=== PATIENT | female | born 1950 | race American Indian/Alaskan Native ===

== ENCOUNTER 2021-09-06 23:25 | Inpatient (IN) | payer OTHER, MEDICARE ==
[2021-09-07] MEDS ORDERED: methylPREDNISolone Sod Succinate 125 MG/2 ML INJ IV ONE (00:22)
[2021-09-07] MEDS ORDERED: IPRATROPIUM 0.02% NEBU 2.5 ML IH ONE (00:22)
[2021-09-07] MEDS ORDERED: ALBUTEROL 2.5 MG/3 ML NEBU IH ONE (00:22)
--- NOTE | 2021-09-07 00:26 | Emergency Department Report ---
ED General Adult HPI - General Chief complaint: Weakness Stated complaint: WEAKNESS Time Seen by Provider: 09/07/21 00:20 Source: patient Mode of arrival: Stretcher Limitations: No Limitations - History of Present Illness Initial comments: Patient is 71 years old female with history of hypertension, COPD and asthma. Patient brought to the emergency room via EMS from home for evaluation of shortness of breath. Patient stated that her symptoms started all of a sudden around 9 PM when she felt like everything in a slow motion. She stated that this is continued for approximately 20 minutes and went away. Patient denied any focal weakness, numbness or tingling sensation. She denied any blurry vision or double vision. No slurred speech. She is complaining now of shortness of breath. She denied any chest pain or cough. No fever or chills. Stroke scale is 0. - Related Data Home Medications Medication Instructions Recorded Confirmed Last Taken ALBUTEROL NEB's [Proventil 0.083% 2.5 mg IH TID PRN 08/22/21 08/22/21 Unknown NEBS] Previous Rx's Medication Instructions Recorded Last Taken Type Albuterol Mdi (or & Nicu Only) 2 puff INHALATION Q4H PRN 30 Days 08/24/21 Unknown Rx [ProAir HFA Inhaler] AtorvaSTATin [Lipitor] 20 mg PO QHS #30 tab 08/24/21 Unknown Rx Budesonide/Formoterol Fumarate 2 puff PO BID 30 Days 08/24/21 Unknown Rx [Symbicort 160-4.5 Mcg Inhaler] Montelukast [Singulair] 10 mg PO QPM #30 tab 08/24/21 Unknown Rx NIFEdipine [Nifedipine ER] 60 mg PO DAILY #30 08/24/21 Unknown Rx Prednisone [predniSONE 10 mg 10 mg PO .TAPER #1 08/24/21 Unknown Rx (6-Day Pack, 21 Tabs)] Allergies Allergy/AdvReac Type Severity Reaction Status Date / Time atorvastatin AdvReac Joint Pain Verified 08/22/21 14:06 ED Review of Systems ROS: Stated complaint: WEAKNESS Other details as noted in HPI Comment: All other systems reviewed and negative Constitutional: denies: chills, fever Respiratory: denies: cough ED Past Medical Hx - Past Medical History Previous Medical History?: Yes Hx Hypertension: Yes Hx Asthma: Yes Hx COPD: Yes Hx HIV: No Additional medical history: intubated - Surgical History Past Surgical History?: Yes Additional Surgical History: - Social History Smoking Status: Current Some Day Smoker - Medications Home Medications: Home Medications Medication Instructions Recorded Confirmed Last Taken Type ALBUTEROL NEB's [Proventil 0.083% 2.5 mg IH TID PRN 08/22/21 08/22/21 Unknown History NEBS] Albuterol Mdi (or & Nicu Only) 2 puff INHALATION Q4H PRN 30 Days 08/24/21 Unknown Rx [ProAir HFA Inhaler] AtorvaSTATin [Lipitor] 20 mg PO QHS #30 tab 08/24/21 Unknown Rx Budesonide/Formoterol Fumarate 2 puff PO BID 30 Days 08/24/21 Unknown Rx [Symbicort 160-4.5 Mcg Inhaler] Montelukast [Singulair] 10 mg PO QPM #30 tab 08/24/21 Unknown Rx NIFEdipine [Nifedipine ER] 60 mg PO DAILY #30 08/24/21 Unknown Rx Prednisone [predniSONE 10 mg 10 mg PO .TAPER #1 08/24/21 Unknown Rx (6-Day Pack, 21 Tabs)] ED Physical Exam - General Limitations: No Limitations ED Course Vital Signs 09/07/21 09/07/21 09/07/21 00:22 01:00 01:23 Temperature 98.5 F Pulse Rate 80 92 H Pulse Rate [ Anterior] Respiratory 20 15 14 Rate Respiratory Rate [Anterior] Blood Pressure 143/91 Blood Pressure 149/91 [Left] O2 Sat by Pulse 98 100 98 Oximetry 09/07/21 09/07/21 09/07/21 01:26 01:31 01:45 Temperature Pulse Rate 62 69 Pulse Rate [ 83 Anterior] Respiratory 15 19 Rate Respiratory 16 Rate [Anterior] Blood Pressure 156/93 156/93 Blood Pressure [Left] O2 Sat by Pulse 100 100 Oximetry 09/07/21 02:01 Temperature Pulse Rate 81 Pulse Rate [ Anterior] Respiratory 20 Rate Respiratory Rate [Anterior] Blood Pressure 154/79 Blood Pressure [Left] O2 Sat by Pulse 100 Oximetry ED Medical Decision Making - Lab Data Result diagrams: 09/07/21 00:47 09/07/21 00:47 - EKG Data -: EKG Interpreted by Vt EKG shows normal: sinus rhythm Rate: normal - EKG Data Interpretation: no acute changes - Radiology Data Radiology results: report reviewed - Medical Decision Making Patient is 71 years old female with history of hypertension, COPD and asthma. Patient brought to the emergency room via EMS from home for evaluation of shortness of breath. Patient stated that her symptoms started all of a sudden around 9 PM when she felt like everything in a slow motion. She stated that t his is continued for approximately 20 minutes and went away. Patient denied any focal weakness, numbness or tingling sensation. She denied any blurry vision or double vision. No slurred speech. She is complaining now of shortness of breath. She denied any chest pain or cough. No fever or chills. Stroke scale is 0. EKG is unremarkable. Labs reviewed was unremarkable. Chest x-ray is negative for acute finding. CT brain showed possible subacute infarct. Patient might have a symptoms of TIA. Patient was wheezing and received albuterol, Atrovent and Solu-Medrol. I discussed the patient with Dr. Menjivar, he agreed to admit the patient to medical service for further management. Critical Care Time: Yes Critical care time in (mins) excluding proc time.: 35 Critical care attestation.: If time is entered above; I have spent that time in minutes in the direct care of this critically ill patient, excluding procedure time. ED Disposition Clinical Impression: COPD with acute exacerbation, TIA (transient ischemic attack) Disposition: 09 ADMITTED INPATIENT Is pt being admited?: Yes Condition: Stable Instructions: Chronic Obstructive Pulmonary Disease (ED)
[2021-09-07 00:59] LABS: Basophils % (Auto) 0.4 % (0.0-1.8); Eosinophils # (Auto) 0.1 K/mm3 (0.0-0.4); Eosinophils % (Auto) 1.2 % (0.0-4.3); Hematocrit 41.9 % (30.3-42.9); Hemoglobin 14.2 gm/dl (10.1-14.3); Lymphocytes # (Auto) 2.2 K/mm3 (1.2-5.4); Lymphocytes % (Auto) 29.2 % (13.4-35.0); Mean Corpuscular HGB Conc 34 % (30-34); Mean Corpuscular Volume 86 fl (79-97); Monocytes # (Auto) 0.6 K/mm3 (0.0-0.8); Monocytes % (Auto) 7.8 % (0.0-7.3); Platelet Count 248 K/mm3 (140-440); Red Blood Count 4.86 M/mm3 (3.65-5.03); Red Cell Distribution Width 14.3 % (13.2-15.2)
[2021-09-07 01:11] LABS: INR 0.8 (0.87-1.13)
--- NOTE | 2021-09-07 01:17 | Cat Scan Report ---
CT HEAD WITHOUT CONTRAST INDICATION / CLINICAL INFORMATION: Syncope. TECHNIQUE: CT head was performed without administration of intravenous contrast. All CT scans at this location are performed using CT dose reduction for ALARA by means of automated exposure control. COMPARISON: None available. FINDINGS: CEREBRAL HEMISPHERES: Generalized atrophy and moderate bilateral regions of periventricular white mat ter hypoattenuation are demonstrated. Bilateral more focal superimposed foci additionally demonstrate d. No midline shift. Basal cisterns patent. Hypoattenuation with indistinct margins medial occipital cortex left occipital lobe. HEMORRHAGE: None. CEREBELLUM / BRAINSTEM: No significant abnormality. ORBITS: No significant abnormality. Prior right cataract surgery. SOFT TISSUES: No significant abnormality. SKULL: No significant abnormality. PARANASAL SINUSES / MASTOID AIR CELLS: Normal as visualized. ADDITIONAL FINDINGS: None. IMPRESSION: 1. Extensive white matter hypoattenuation present bilaterally, differential considerations to include advanced microvascular ischemic disease and possibly demyelinating process. 2. Hypoattenuation medial cortex left occipital lobe may reflect subacute infarction. MRI recommended for further evaluation. Signer Name: Mateus Ahn II, MD Signed: 09/07/2021 1:12 AM Workstation Name: [id number]
[2021-09-07 01:21] LABS: BUN/Creatinine Ratio 15; Blood Urea Nitrogen 12 mg/dL (7-17); Calcium 9.5 mg/dL (8.4-10.2); Hemolysis Index 23
[2021-09-07 01:25] LABS: Alanine Aminotransferase 22 units/L (7-56)
[2021-09-07 01:34] LABS: Bilirubin,Direct < 0.2 mg/dL (0-0.2)
--- NOTE | 2021-09-07 02:38 | XRay Report ---
CHEST 1 VIEW INDICATION / CLINICAL INFORMATION: SOB. COMPARISON: Chest x-ray 08/21/2021 FINDINGS: SUPPORT DEVICES: None. HEART / MEDIASTINUM: No significant abnormality. LUNGS / PLEURA: No significant pulmonary abnormality. Stable eventration right hemidiaphragm. BONES: No significant osseous abnormality. ADDITIONAL FINDINGS: No significant additional findings. IMPRESSION: 1. No active cardiopulmonary disease. Signer Name: Mateus Ahn II, MD Signed: 09/07/2021 2:33 AM Workstation Name: [id number]
--- NOTE | 2021-09-07 03:26 | Cat Scan Report ---
CTA CHEST WITH CONTRAST INDICATION / CLINICAL INFORMATION: CHEST PAIN WITH SOB. TECHNIQUE: Axial CT images were obtained through the chest after injection of IV contrast. 3 plane NJ P and/or 3D reconstructions were produced. All CT scans at this location are performed using CT dose reduction for ALARA by means of automated exposure control. COMPARISON: None available. FINDINGS: VASCULAR FINDINGS: PULMONARY ARTERY: Pulmonary artery is normal in size. No filling defects are present compatible with pulmonary artery embolus.. THORACIC AORTA: No acute abnormality. Ascending aorta measures 3.8 cm. CORONARY ARTERY CALCIFICATION: Present -- Mild. NONVASCULAR FINDINGS: LOWER NECK: Soft tissues and musculature of the lower neck demonstrate no significant abnormality. Th e thyroid demonstrates no significant abnormality. HEART: No significant abnormality. MEDIASTINUM / GABBY: No significant abnormality. ESOPHAGUS: No significant abnormality. LYMPH NODES: No adenopathy within the axilla, mediastinum, or gabby. LUNGS: Mild centrilobular emphysema. Discoid atelectasis right middle lobe. Lungs otherwise clear. PLEURA: No pleural effusion. No pneumothorax. THORACIC SOFT TISSUES: No significant abnormality of the chest wall or upper thoracic musculature. BONES: No significant skeletal abnormalities. ADDITIONAL CHEST FINDINGS: None. UPPER ABDOMEN: No acute findings. IMPRESSION: 1. No CT evidence for pulmonary embolism. 2. Centrilobular emphysema. Signer Name: Mateus Ahn II, MD Signed: 09/07/2021 3:22 AM Workstation Name: [id number]
[2021-09-07] MEDS ORDERED: ALBUTEROL 2.5 MG/3 ML NEBU IH PRN ×3 (04:43→23:00)
[2021-09-07] MEDS ORDERED: MORPHINE 2 MG/1 ML INJ IV PRN ×2 (04:43)
[2021-09-07] MEDS ORDERED: ONDANSETRON 4 MG/2 ML INJ IV PRN ×2 (04:43)
[2021-09-07] MEDS ORDERED: PROMETHAZINE 25 MG RECT SUPP PR PRN (04:43)
[2021-09-07] MEDS ORDERED: METOCLOPRAMIDE 10 MG TAB PO PRN (04:43)
[2021-09-07] MEDS ORDERED: ACETAMINOPHEN 325 MG TAB PO PRN ×2 (04:43)
[2021-09-07] MEDS ORDERED: MAGNESIUM HYDROXIDE (MOM) ORAL LIQD UDC PO PRN ×2 (04:43)
[2021-09-07] MEDS ORDERED: MORPHINE 4 MG/1 ML INJ IV PRN ×2 (04:43)
--- NOTE | 2021-09-07 05:00 | History and Physical Report ---
History of Present Illness Date of examination: 09/07/21 Date of admission: 09/07/2021 Chief complaint: 09/07/2021 History of present illness: 71-year-old -[place] female with known history of hypertension, COPD and asthma presenting to the emergency room via EMS today for evaluation of shortness of breath. Patient states that symptoms started about 9 PM earlier in the night when she felt suddenly stiff and numb. Symptoms were present for about 20 minutes. He denies any headache or dizziness, no nausea vomiting, no chest pain, no diaphoresis. He denies any slurred speech and denies any focal weakness. Patient denies any fever or chills. Upon arrival in the emergency room she was found to be wheezing, was therefore given nebulizing treatments and IV steroid with significant improvement. Work-up in the emergency room today, chest x-ray was unremarkable. CT scan of the head reveals:1. Extensive white matter hypoattenuation present bilaterally, differential considerations to include advanced microvascular ischemic disease and possibly demyelinating process. 2. Hypoattenuation medial cortex left occipital lobe may reflect subacute inf arction. MRI recommended for further evaluation. CT angiogram of the chest reveals centrilobular emphysema. No evidence of pulmonary embolism. Patient was evaluated by the tele-neurologist and recommendation is for patient to have MRI of the brain. Past History Past Medical History: hypertension, other (Asthma) Past Surgical History: Social history: smoking (Current Daily smokersmokes about half a pack of cigarette daily) Family history: no significant family history Medications and Allergies Allergies Allergy/AdvReac Type Severity Reaction Status Date / Time atorvastatin AdvReac Joint Pain Verified 08/22/21 14:06 Home Medications Medication Instructions Recorded Confirmed Last Taken Type ALBUTEROL NEB's [Proventil 0.083% 2.5 mg IH TID PRN 08/22/21 08/22/21 Unknown History NEBS] Albuterol Mdi (or & Nicu Only) 2 puff INHALATION Q4H PRN 30 Days 08/24/21 Unknown Rx [ProAir HFA Inhaler] AtorvaSTATin [Lipitor] 20 mg PO QHS #30 tab 08/24/21 Unknown Rx Budesonide/Formoterol Fumarate 2 puff PO BID 30 Days 08/24/21 Unknown Rx [Symbicort 160-4.5 Mcg Inhaler] Montelukast [Singulair] 10 mg PO QPM #30 tab 08/24/21 Unknown Rx NIFEdipine [Nifedipine ER] 60 mg PO DAILY #30 08/24/21 Unknown Rx Prednisone [predniSONE 10 mg 10 mg PO .TAPER #1 08/24/21 Unknown Rx (6-Day Pack, 21 Tabs)] Active Meds: Active Medications Acetaminophen (Acetaminophen 325 Mg Tab) 650 mg PO Q4H PRN PRN Reason: Pain, Mild (1-3) Albuterol (Albuterol 2.5 Mg/3 Ml Nebu) 2.5 mg IH Q3HRT PRN PRN Reason: Shortness Of Breath Albuterol/Ipratropium (Ipratropium/Albuterol Sulfate 3 Ml Ampul.Neb) 1 ampul IH Q6HRT LUCIANA Aspirin (Aspirin 325 Mg Tab) 325 mg PO QDAY LUCIANA Bisacodyl (Bisacodyl 10 Mg Rect Supp) 10 mg SC QDAY PRN PRN Reason: Constipation Heparin Sodium (Porcine) (Heparin 5,000 Unit/1 Ml Vial) 5,000 unit SUB-Q Q8HR LUCIANA Magnesium Hydroxide (Magnesium Hydroxide (Mom) Oral Liqd Udc) 30 ml PO Q4H PRN PRN Reason: Constipation Metoclopramide HCl (Metoclopramide 10 Mg Tab) 10 mg PO Q6H PRN PRN Reason: Nausea And Vomiting Morphine Sulfate (Morphine 2 Mg/1 Ml Inj) 2 mg IV Q4H PRN PRN Reason: Pain, Moderate (4-6) Morphine Sulfate (Morphine 4 Mg/1 Ml Inj) 4 mg IV Q4H PRN PRN Reason: Pain , Severe (7-10) Ondansetron HCl (Ondansetron 4 Mg/2 Ml Inj) 4 mg IV Q8H PRN PRN Reason: Nausea And Vomiting Promethazine HCl (Promethazine 25 Mg Rect Supp) 25 mg SC Q6H PRN PRN Reason: Nausea And Vomiting Sodium Chloride (Sodium Chloride 0.9% 10 Ml Flush Syringe) 10 ml IV BID LUCIANA Sodium Chloride (Sodium Chloride 0.9% 10 Ml Flush Syringe) 10 ml IV PRN PRN PRN Reason: LINE FLUSH Review of Systems Constitutional: no fever, no chills Ears, nose, mouth and throat: no nasal congestion, no sore throat Cardiovascular: no chest pain, no palpitations Respiratory: no cough, no shortness of breath Gastrointestinal: no nausea, no vomiting, no diarrhea, no jaundice Genitourinary Female: no pelvic pain, no flank pain, no dysuria, no hematuria Musculoskeletal: no low back pain Integumentary: no rash, no pruritis Neurological: weakness, no headaches, no confusion Psychiatric: no anxiety, no insomnia, no paranoia Endocrine: excessive thirst ( ), no polyphagia, no polydipsia, no polyuria, no nocturia Exam - Constitutional Vitals: Temp Pulse Resp BP Pulse Ox 98.5 F 81 20 154/79 100 09/07/21 00:22 09/07/21 02:01 09/07/21 02:01 09/07/21 02:01 09/07/21 02:01 General appearance: Present: no acute distress, well-nourished - EENT Eyes: Present: PERRL, EOM intact. Absent: scleral icterus ENT: hearing intact, clear oral mucosa, dentition normal - Neck Neck: Present: supple, normal ROM - Respiratory Respiratory effort: normal Respiratory: bilateral: CTA - Cardiovascular Rhythm: regular Heart Sounds: Present: S1 & S2. Absent: gallop, systolic murmur, diastolic murmur, rub, click - Extremities Extremities: no ischemia, pulses intact, pulses symmetrical, No edema, normal te mperature, normal color, Full ROM Peripheral Pulses: within normal limits - Abdominal General gastrointestinal: Present: soft, non-tender, non-distended, normal bowel sounds. Absent: mass - Integumentary Integumentary: Present: clear, warm, dry, normal turgor. Absent: rash - Musculoskeletal Musculoskeletal: strength equal bilaterally - Psychiatric Psychiatric: appropriate mood/affect, intact judgment & insight, memory intact, cooperative - Neurologic Neurologic: CNII-XII intact, no focal deficits, moves all extremities HEART Score - HEART Score Troponin: Troponin T < 0.010 ng/mL (0.00-0.029) 09/07/21 00:47 Results - Labs CBC & Chem 7: 09/07/21 00:47 09/07/21 00:47 Labs: Abnormal lab results 09/07/21 09/07/21 09/07/21 Range/Units 00:47 00:47 00:47 [place] % (Auto) 7.8 H (0.0-7.3) % PT 11.9 L (12.2-14.9) Sec. INR 0.80 L (0.87-1.13) D-Dimer 290.40 H (0-234) ng/mlDDU Glucose 111 H (65-100) mg/dL Assessment and Plan Assessment: 1. TIA versus CVA 2. COPD 3. Tobacco dependence 4. Hypertension Plan: 1. Patient admitted and placed on telemetry. 2. We will commence on daily aspirin. Patient is allergic to statin. 3. We will schedule patient for MRI of the brain. 4. We will request neurology evaluation and follow-up. 5. Patient counseled on quitting tobacco abuse. We offer nicotine patch as needed. 6. Patient will be placed on nebulizing treatments as needed for COPD. 7. We will resume routine home medications once reconciled. DVT prophylaxis: Subcutaneous heparin CODE STATUS: Full code
[2021-09-07] MEDS: HEPARIN 5,000 UNIT/1 ML VIAL SUB-Q SCH ×3 (05:36→22:48)
[2021-09-07] MEDS: IPRATROPIUM/ALBUTEROL SULFATE 3 ML AMPUL.NEB IH SCH ×3 (11:38→22:48)
[2021-09-07] MEDS: ASPIRIN 325 MG TAB PO SCH (11:39)
--- NOTE | 2021-09-07 12:32 | Event Note ---
Date: 09/07/21 Patient seen and examined with at bedside. She was updated about current care plan. Home inhaler medications for asthma to be started. We will continue with current care plan as stated in H&P.
[2021-09-07] MEDS: NICOTINE 14 MG/24 HR PATCH TD SCH (15:18)
[2021-09-07] MEDS: MONTELUKAST 10 MG TAB PO SCH (19:00)
--- NOTE | 2021-09-07 21:40 | Electrocardiograph Report ---
[facility] Test Date: 2021-09-07 Test Time: 00:23:13 Pat Name: PETER COHEN Department: Room: A367 Gender: F Resource Room Teacher: LORENZO : 1950 Requested By: NIGEL STILL Order Number: [id number] Reading MD: Amy Bond Measurements Intervals [place] Rate: 71 P: 78 OK: 128 QRS: 50 QRSD: 82 T: 265 QT: 398 QTc: 433 Interpretive Statements Sinus rhythm ST and T wave abnormality, consider anterolateral ischemia Compared to ECG 08/21/2021 10:31:06 No significant changes Electronically Signed On 09-07-2021 21:40:19 EDT by Amy Bond
[2021-09-07] MEDS ORDERED: NON-FORMULARY EACH (Budesonide/Formoterol Fumarate [Symbicort 160-4.5 Mcg Inhaler] 10.2 GM PO SCH (22:00)
[2021-09-07] MEDS: BUDESONIDE 0.5 MG/2 ML NEBU IH SCH (22:48)
[2021-09-07] MEDS: ARFORMOTEROL 15 MCG/2 ML NEBU IH SCH (22:48)
[2021-09-08] MEDS: HEPARIN 5,000 UNIT/1 ML VIAL SUB-Q SCH ×3 (05:14→22:50)
[2021-09-08 05:55] LABS: Basophils # (Auto) 0.1 K/mm3 (0.0-0.1); Eosinophils % (Auto) 0.3 % (0.0-4.3); Hematocrit 37.7 % (30.3-42.9); Hemoglobin 13.3 gm/dl (10.1-14.3); Lymphocytes # (Auto) 3.1 K/mm3 (1.2-5.4); Lymphocytes % (Auto) 34.7 % (13.4-35.0); Mean Corpuscular HGB Conc 35 % (30-34); Mean Corpuscular Volume 85 fl (79-97); Monocytes # (Auto) 0.4 K/mm3 (0.0-0.8); Monocytes % (Auto) 4.9 % (0.0-7.3); Platelet Count 219 K/mm3 (140-440); Red Blood Count 4.46 M/mm3 (3.65-5.03); Red Cell Distribution Width 13.9 % (13.2-15.2)
[2021-09-08 06:16] LABS: Blood Urea Nitrogen 16 mg/dL (7-17); Calcium 8.7 mg/dL (8.4-10.2); Hemolysis Index 2
[2021-09-08 06:19] LABS: BUN/Creatinine Ratio 23
[2021-09-08] MEDS: ARFORMOTEROL 15 MCG/2 ML NEBU IH SCH ×2 (08:23→20:25)
[2021-09-08] MEDS: IPRATROPIUM/ALBUTEROL SULFATE 3 ML AMPUL.NEB IH SCH ×3 (08:23→20:25)
[2021-09-08] MEDS: BUDESONIDE 0.5 MG/2 ML NEBU IH SCH ×2 (08:23→20:25)
[2021-09-08] MEDS: ASPIRIN 325 MG TAB PO SCH (09:27)
[2021-09-08] MEDS: NICOTINE 14 MG/24 HR PATCH TD SCH (09:27)
--- NOTE | 2021-09-08 16:12 | Magnetic Resonance Report ---
MR brain wo con INDICATION / CLINICAL INFORMATION: stroke, SYNCOPE. TECHNIQUE: Multiplanar, multisequence MR images of the brain were obtained. COMPARISON: CT head from 09/07/2021 FINDINGS: INTRACRANIAL: Small areas of restricted diffusion seen within the right cerebellum. Large quantity of T2 signal white matter hyperintensities. No hemorrhage. Ventricular caliber is normal. No extra-axia l collection. No mass. No herniation. Major intracranial vascular flow voids are preserved. ORBITS: No significant abnormality of visualized orbits. SINUSES / MASTOIDS: No significant abnormality of visualized sinuses and mastoid air cells. ADDITIONAL FINDINGS: None. IMPRESSION: 1. Small area of acute infarctions involving the right cerebellum and right occipital lobe. 2. Advanced sequela from chronic microvascular disease. Signer Name: Ronald Gustafson MD Signed: 09/08/2021 4:08 PM Workstation Name: [id number]
--- NOTE | 2021-09-08 16:15 | Progress Note ---
Assessment and Plan Assessment and plan: #Acute right cerebellar infarct -CT of the head showed hypoattenuation of medial cortex left occipital lobe suggestive of subacute infarction -MRI brain showed chronic microvascular disease and small area of acute infarctions involving the right cerebellum and right occipital lobe -Echocardiogram with bubble study: Diastolic dysfunction, LVEF 60 to 65%, no ASD and mild pulmonary hypertension -Carotid Doppler pending -continue aspirin, statin not started due to patient history of myopathy/myalgias -Awaiting physical therapy evaluation due to presenting left lower extremity weakness and to evaluate gait #Hypertension -will resume nifedipine at patient's home dose -goal SBP <160 #history COPD -Not in acute exacerbation -Continue nebulizers #Tobacco dependence #Tobacco cessation counseling -Patient smokes half pack a day -Continue nicotine patch while inpatient -Patient would like trial of Chantix at discharge -Smoking cessation counseling, supportive care, behavior change counseling, +15 minutes. #Advanced care planning -Disease education conducted, care plan discussed, diagnoses discussed, prognosis discussed, and patient acknowledges understanding with care plan -Time: +30 min History Interval history: No acute events overnight. Patient reports feeling well. She has improved range of motion in her left foot. She has no complaints at this time. Hospitalist Physical - Physical exam Narrative exam: GENERAL: Well-developed well-nourished. In no acute distress. HEENT: Normocephalic. Atraumatic. CHEST/LUNGS: CTAB on room air HEART/CARDIOVASCULAR: RRR. No murmur, rubs or gallops appreciated. ABDOMEN: +BS. NT/ND. SKIN: No rashes noted. NEURO: No focal motor deficit. Follows all commands. MUSCULOSKELETAL: No joint effusion EXTREMITIES: No cyanosis, clubbing or edema. PSYCH: Cooperative. - Constitutional Vitals: Temp Pulse Resp BP Pulse Ox 98.2 F 83 16 171/97 100 09/08/21 11:24 09/08/21 13:11 09/08/21 13:11 09/08/21 11:24 09/08/21 11:24 General appearance: Present: no acute distress, well-nourished HEART Score - HEART Score Troponin: Troponin T < 0.010 ng/mL (0.00-0.029) 09/07/21 00:47 Results - Labs CBC & Chem 7: 09/08/21 05:07 09/08/21 05:07 Labs: Laboratory Last Values WBC 9.0 K/mm3 (4.5-11.0) 09/08/21 05:07 RBC 4.46 M/mm3 (3.65-5.03) 09/08/21 05:07 Hgb 13.3 gm/dl (10.1-14.3) 09/08/21 05:07 Hct 37.7 % (30.3-42.9) 09/08/21 05:07 MCV 85 fl (79-97) 09/08/21 05:07 MCH 30 pg (28-32) 09/08/21 05:07 MCHC 35 % (30-34) H 09/08/21 05:07 RDW 13.9 % (13.2-15.2) 09/08/21 05:07 Plt Count 219 K/mm3 (140-440) 09/08/21 05:07 Lymph % (Auto) 34.7 % (13.4-35.0) 09/08/21 05:07 [place] % (Auto) 4.9 % (0.0-7.3) 09/08/21 05:07 Eos % (Auto) 0.3 % (0.0-4.3) 09/08/21 05:07 Baso % (Auto) 1.0 % (0.0-1.8) 09/08/21 05:07 Lymph # (Auto) 3.1 K/mm3 (1.2-5.4) 09/08/21 05:07 [place] # (Auto) 0.4 K/mm3 (0.0-0.8) 09/08/21 05:07 Eos # (Auto) 0.0 K/mm3 (0.0-0.4) 09/08/21 05:07 Baso # (Auto) 0.1 K/mm3 (0.0-0.1) 09/08/21 05:07 Seg Neutrophils % 59.1 % (40.0-70.0) 09/08/21 05:07 Seg Neutrophils # 5.3 K/mm3 (1.8-7.7) 09/08/21 05:07 PT 11.9 Sec. (12.2-14.9) L 09/07/21 00:47 INR 0.80 (0.87-1.13) L 09/07/21 00:47 D-Dimer 290.40 ng/mlDDU (0-234) H 09/07/21 00:47 Sodium 141 mmol/L (137-145) 09/08/21 05:07 Potassium 3.7 mmol/L (3.6-5.0) 09/08/21 05:07 Chloride 106.2 mmol/L (98-107) 09/08/21 05:07 Carbon Dioxide 26 mmol/L (22-30) 09/08/21 05:07 Anion Gap 13 mmol/L 09/08/21 05:07 BUN 16 mg/dL (7-17) 09/08/21 05:07 Creatinine 0.7 mg/dL (0.6-1.2) 09/08/21 05:07 Estimated GFR > 60 ml/min 09/08/21 05:07 BUN/Creatinine Ratio 23 % 09/08/21 05:07 Glucose 85 mg/dL (65-100) 09/08/21 05:07 Calcium 8.7 mg/dL (8.4-10.2) 09/08/21 05:07 Total Bilirubin 0.30 mg/dL (0.1-1.2) 09/07/21 00:47 Direct Bilirubin < 0.2 mg/dL (0-0.2) 09/07/21 00:47 Indirect Bilirubin 0.1 mg/dL 09/07/21 00:47 AST 22 units/L (5-40) 09/07/21 00:47 ALT 22 units/L (7-56) 09/07/21 00:47 Alkaline Phosphatase 79 units/L (35-129) 09/07/21 00:47 Troponin T < 0.010 ng/mL (0.00-0.029) 09/07/21 00:47 NT-Pro-B Natriuret Pep 218.5 pg/mL (0-900) 09/07/21 00:47 Total Protein 6.5 g/dL (6.3-8.2) 09/07/21 00:47 Albumin 4.0 g/dL (3.9-5) 09/07/21 00:47 Albumin/Globulin Ratio 1.6 % 09/07/21 00:47 [place]z/IV: Voiding Method Toilet Active Medications - Current Medications Current Medications: Generic Name Dose Route Start Last Admin Trade Name Freq PRN Reason Stop Dose Admin Acetaminophen 650 mg 09/07/21 04:43 Acetaminophen 325 Mg Tab PO Q4H PRN Pain, Mild (1-3) Albuterol 2.5 mg 09/07/21 23:00 Albuterol 2.5 Mg/3 Ml Nebu IH TIDRT PRN Wheezing Albuterol/Ipratropium 1 ampul 09/08/21 08:00 09/08/21 13:11 Ipratropium/Albuterol Sulfate 3 Ml Ampul.Neb IH 1 ampul TIDRT LUCIANA Administration Arformoterol Tartrate 15 mcg 09/07/21 20:00 09/08/21 08:23 Arformoterol 15 Mcg/2 Ml Nebu IH 15 mcg Q12HRT LUCIANA Administration Aspirin 325 mg 09/07/21 10:00 09/08/21 09:27 Aspirin 325 Mg Tab PO 325 mg QDAY LUCIANA Administration Atorvastatin Calcium 20 mg 09/07/21 22:00 09/07/21 22:39 Atorvastatin 20 Mg Tab PO Not Given QHS LUCIANA Bisacodyl 10 mg 09/07/21 04:43 Bisacodyl 10 Mg Rect Supp IA QDAY PRN Constipation Budesonide 0.5 mg 09/07/21 20:00 09/08/21 08:23 Budesonide 0.5 Mg/2 Ml Nebu IH 0.5 mg Q12HRT LUCIANA Administration Heparin Sodium (Porcine) 5,000 unit 09/07/21 06:00 09/08/21 13:19 Heparin 5,000 Unit/1 Ml Vial SUB-Q 5,000 unit Q8HR LUCIANA Administration Magnesium Hydroxide 30 ml 09/07/21 04:43 Magnesium Hydroxide (Mom) Oral Liqd Udc PO Q4H PRN Constipation Metoclopramide HCl 10 mg 09/07/21 04:43 Metoclopramide 10 Mg Tab PO Q6H PRN Nausea And Vomiting Montelukast Sodium 10 mg 09/07/21 18:00 09/07/21 19:00 Montelukast 10 Mg Tab PO 10 mg QPM LUCIANA Administration Morphine Sulfate 2 mg 09/07/21 04:43 Morphine 2 Mg/1 Ml Inj IV Q4H PRN Pain, Moderate (4-6) Morphine Sulfate 4 mg 09/07/21 04:43 Morphine 4 Mg/1 Ml Inj IV Q4H PRN Pain , Severe (7-10) Nicotine 14 mg 09/07/21 12:00 09/08/21 09:27 Nicotine 14 Mg/24 Hr Patch TD 14 mg QDAY LUCIANA Administration Ondansetron HCl 4 mg 09/07/21 04:43 Ondansetron 4 Mg/2 Ml Inj IV Q8H PRN Nausea And Vomiting Promethazine HCl 25 mg 09/07/21 04:43 Promethazine 25 Mg Rect Supp IA Q6H PRN Nausea And Vomiting Sodium Chloride 10 ml 09/07/21 10:00 09/08/21 09:28 Sodium Chloride 0.9% 10 Ml Flush Syringe IV 10 ml BID LUCIANA Administration Sodium Chloride 10 ml 09/07/21 04:43 Sodium Chloride 0.9% 10 Ml Flush Syringe IV PRN PRN LINE FLUSH
--- NOTE | 2021-09-08 17:36 | Vascular Lab Report ---
DUPLEX DOPPLER ULTRASOUND CAROTID, BILATERAL INDICATION / CLINICAL INFORMATION: stroke. COMPARISON: None available. FINDINGS: RIGHT CAROTID: - PLAQUE ESTIMATE (%): < 50% - CCA velocity: 57 cm/sec. - ICA peak systolic velocity: 71 cm/sec. - ICA/CCA PSV Ratio: 1.2 Right Vertebral Artery: Antegrade flow. LEFT CAROTID: - PLAQUE ESTIMATE (%): < 50% - CCA velocity: 54 cm/sec. - ICA peak systolic velocity: 58 cm/sec. - ICA/CCA PSV Ratio: 1.1 Left Vertebral Artery: Antegrade flow. IMPRESSION: 1. Right Internal Carotid Artery: Less than 50% diameter stenosis. 2. Left Internal Carotid Artery: Less than 50% diameter stenosis. Velocity criteria are extrapolated from diameter data as defined by the Society of Radiologists in Ul trasound Consensus Conference, Radiology 2003; 229;340-346. NO STENOSIS (NORMAL) - Plaque = none; ICA PSV < 125 cm/sec; ICA/CCA PSV Ratio < 2.0 <50% STENOSIS - Plaque < 50%; ICA PSV < 125 cm/sec; ICA/CCA PSV Ratio < 2.0 50-69% STENOSIS - Plaque > 50%; ICA PSV = 125-230 cm/sec; ICA/CCA PSV Ratio = 2.0-4.0 >70% BUT <100% STENOSIS - Plaque > 50%; ICA PSV > 230 cm/sec; ICA/CCA PSV Ratio > 4.0 NEAR OCCLUSION - Plaque = visible lumen; ICA PSV = high/low/none; ICA/CCA PSV Ratio = variable TOTAL OCCLUSION - Plaque = no lumen; ICA PSV = none; ICA/CCA PSV Ratio = N/A Signer Name: Bruce Carmona MD Signed: 09/08/2021 5:31 PM Workstation Name: [id number]
[2021-09-08] MEDS: MONTELUKAST 10 MG TAB PO SCH (18:06)
[2021-09-08] MEDS: NIFEdipine XL 60 MG TAB PO SCH (18:06)
--- NOTE | 2021-09-09 00:07 | Consultation ---
History of Present Illness Consult date: 09/08/21 Reason for Consult: TIA vs CVA Chief complaint: "I feel better today." History of present illness: 71 yo female, right-handed, with htn, copd, stroke, who presented to the ED with noted event where she was seated and noted "I didn't know what I was saying" and "everything got slow" and "things became a blur" where she had a hard time remembering what was transpiring. The symptoms lasted for less than 30 minutes. She does not remember feeling short of breath as documeted in the ED. Currently, she is at her baseline. [facility] raised a concern for possible acute or subacute infarction involving the occipital lobe. Past History Past Medical History: COPD, hypertension, other (Asthma) Past Surgical History: Social history: smoking (Current Daily smokersmokes about half a pack of cigarette daily) Family history: no significant family history Medications and Allergies Allergies Allergy/AdvReac Type Severity Reaction Status Date / Time atorvastatin AdvReac Joint Pain Verified 08/22/21 14:06 Home Medications Medication Instructions Recorded Confirmed Last Taken Type ALBUTEROL NEB's [Proventil 0.083% 2.5 mg IH TID PRN 08/22/21 09/07/21 09/06/21 09:00 History NEBS] Albuterol Mdi (or & Nicu Only) 2 puff INHALATION Q4H PRN 30 Days 08/24/21 09/07/21 09/06/21 09:00 Rx [ProAir HFA Inhaler] AtorvaSTATin [Lipitor] 20 mg PO QHS #30 tab 08/24/21 09/07/21 09/06/21 09:00 Rx Budesonide/Formoterol Fumarate 2 puff PO BID 30 Days 08/24/21 09/07/21 09/06/21 09:00 Rx [Symbicort 160-4.5 Mcg Inhaler] Montelukast [Singulair] 10 mg PO QPM #30 tab 08/24/21 09/07/21 09/06/21 09:00 Rx NIFEdipine [Nifedipine ER] 60 mg PO DAILY #30 08/24/21 09/07/21 09/06/21 09:00 Rx Prednisone [predniSONE 10 mg 10 mg PO .TAPER #1 08/24/21 09/07/21 09/06/21 09:00 Rx (6-Day Pack, 21 Tabs)] Active Meds: Active Medications Acetaminophen (Acetaminophen 325 Mg Tab) 650 mg PO Q4H PRN PRN Reason: Pain, Mild (1-3) Albuterol (Albuterol 2.5 Mg/3 Ml Nebu) 2.5 mg IH TIDRT PRN PRN Reason: Wheezing Albuterol/Ipratropium (Ipratropium/Albuterol Sulfate 3 Ml Ampul.Neb) 1 ampul IH TIDRT [facility] Last Admin: 09/08/21 20:25 Dose: 1 ampul Arformoterol Tartrate (Arformoterol 15 Mcg/2 Ml Nebu) 15 mcg IH Q12HRT [facility] Last Admin: 09/08/21 20:25 Dose: 15 mcg Aspirin (Aspirin 325 Mg Tab) 325 mg PO QDAY [facility] Last Admin: 09/08/21 09:27 Dose: 325 mg Bisacodyl (Bisacodyl 10 Mg Rect Supp) 10 mg VA QDAY PRN PRN Reason: Constipation Budesonide (Budesonide 0.5 Mg/2 Ml Nebu) 0.5 mg IH Q12HRT [facility] Last Admin: 09/08/21 20:25 Dose: 0.5 mg Heparin Sodium (Porcine) (Heparin 5,000 Unit/1 Ml Vial) 5,000 unit SUB-Q Q8HR [facility] Last Admin: 09/08/21 22:50 Dose: 5,000 unit Magnesium Hydroxide (Magnesium Hydroxide (Mom) Oral Liqd Udc) 30 ml PO Q4H PRN PRN Reason: Constipation Metoclopramide HCl (Metoclopramide 10 Mg Tab) 10 mg PO Q6H PRN PRN Reason: Nausea And Vomiting Montelukast Sodium (Montelukast 10 Mg Tab) 10 mg PO QPM [facility] Last Admin: 09/08/21 18:06 Dose: 10 mg Morphine Sulfate (Morphine 2 Mg/1 Ml Inj) 2 mg IV Q4H PRN PRN Reason: Pain, Moderate (4-6) Morphine Sulfate (Morphine 4 Mg/1 Ml Inj) 4 mg IV Q4H PRN PRN Reason: Pain , Severe (7-10) Nicotine (Nicotine 14 Mg/24 Hr Patch) 14 mg TD QDAY [facility] Last Admin: 09/08/21 09:27 Dose: 14 mg Nifedipine (Nifedipine Xl 60 Mg Tab) 60 mg PO DAILY [facility] Last Admin: 09/08/21 18:06 Dose: 60 mg Ondansetron HCl (Ondansetron 4 Mg/2 Ml Inj) 4 mg IV Q8H PRN PRN Reason: Nausea And Vomiting Promethazine HCl (Promethazine 25 Mg Rect Supp) 25 mg VA Q6H PRN PRN Reason: Nausea And Vomiting Sodium Chloride (Sodium Chloride 0.9% 10 Ml Flush Syringe) 10 ml IV BID [facility] Last Admin: 09/08/21 22:50 Dose: 10 ml Sodium Chloride (Sodium Chloride 0.9% 10 Ml Flush Syringe) 10 ml IV PRN PRN PRN Reason: LINE FLUSH Review of Systems All systems: negative (as per hpi;) Physical Examination - Vital Signs Vital Signs: Vital Signs Temp Pulse Resp BP Pulse Ox 98.5 F 80 20 143/91 98 09/07/21 00:22 09/07/21 00:22 09/07/21 00:22 09/07/21 00:22 09/07/21 00:22 - Physical Exam Narrative exam: Gen: nad, well-nourished; Head: normocephalic; Eyes: no gaze deviation; no ptosis; ENT: normal vocalization; CVS: warm and well-perfused; Pulm: no respiratory distress; GI: appears non-distended; Ext: no cyanosis appreciated at distal extremities; Skin: no acute rash at distal extremities; Heme: no pathologic ecchymosis appreciated at distal extremities; Neuro: alert, oriented to name, age, month, year, surroundings, no dysarthria, no aphasia, CN 2 - PERRL, visual wheat grossly intact, CN 3, 4, 6 - EOMI, CN 5 - facial sensation symmetric to light touch, CN 7 - facial movement symmetric, CN 8 - hearing grossly intact, CN 9, 10 - uvula midline, CN 11 symmetric shoulder movement, CN 12 - tongue midline; Motor - at least 4/5 at all exts; Sensory - light touch symmetric, Cerebellar - fnf /hts intact, Gait - deferred secondary to fall risk; NIHSS (1a.) Level of Consciousness:0 (1b.) LOC Questions:0 (1c.) LOC Commands:0 (2.) Best Gaze:0 (3.) Visual:0 (4.) Facial Palsy:0 (5a.) Motor Arm, Left:0 (5b.) Motor Arm, Right:0 (6a.) Motor Leg, Left:0 (6b.) Motor Leg, Right:0 (7.) Limb Ataxia:0 (8.) Sensory:0 (9.) Best Language: (10.) Dysarthria:0 (11.) Extinction and Inattention:0 NIHSS Total Score:0 Results - Laboratory Findings CBC and BMP: 09/08/21 05:07 09/08/21 05:07 Abnormal Lab Findings: Abnormal Labs 09/07/21 09/07/21 09/07/21 00:47 00:47 00:47 [facility] [place] % (Auto) 7.8 H PT 11.9 L INR 0.80 L D-Dimer 290.40 H Glucose 111 H 09/08/21 05:07 MCHC 35 H [place] % (Auto) PT INR D-Dimer Glucose Assessment and Plan 71 yo female, right-handed, with htn, copd, stroke, who presented to the ED with noted event where she was seated and noted "I didn't know what I was saying" and "everything got slow" and "things became a blur" where she had a hard time remembering what was transpiring. The symptoms lasted for less than 30 minutes. 1. 1. Acute Ischemic Stroke: ASA 81 mg PO qday, Plavix 75 mg po qday x 21 days; when plavix is stopped after 21 days, change aspirin 81 mg to 325 mg po qday; consider MRA or CTA Head/Neck w/ & w/o contrast (if cta is unremarkable, then recommend gisela w/ long-term cardiac monitoring), TTEcho, confirm LDL/HgbA1C/TSH/Covid-19/UDS, telemetry, NIHSS q4 hours; SBP goal 160-200 mmHg and DBP 80-100 mmHg for now. Statin therapy for a goal LDL of 70, when patient passes swallow evaluation. PT/OT/ST/Swallow evaluation. Long-term risk-factor modification, including a strict diet/exercise regimen for secondary stroke prophylaxis. Stroke education prior to discharge. 2. Tobacco Abuse - outpatient smoking cessation via pcp. 3. Hx of stroke - patient is on aspirin 81 mg po qday; statin therapy for a goal ldl of 70. 4. COPD - see #2 above; albuterol prn. Brian Augusto[place] Neurology [id number]
[2021-09-09] MEDS: HEPARIN 5,000 UNIT/1 ML VIAL SUB-Q SCH ×2 (05:54→14:23)
[2021-09-09] MEDS: BUDESONIDE 0.5 MG/2 ML NEBU IH SCH (09:04)
[2021-09-09] MEDS: ARFORMOTEROL 15 MCG/2 ML NEBU IH SCH (09:04)
[2021-09-09] MEDS: IPRATROPIUM/ALBUTEROL SULFATE 3 ML AMPUL.NEB IH SCH ×2 (09:04→14:55)
[2021-09-09 09:44] LABS: Chol/HDL Ratio 2.53 %
[2021-09-09] MEDS: NICOTINE 14 MG/24 HR PATCH TD SCH (10:24)
[2021-09-09] MEDS: ASPIRIN 325 MG TAB PO SCH (10:24)
[2021-09-09] MEDS: NIFEdipine XL 60 MG TAB PO SCH (10:24)
--- NOTE | 2021-09-09 11:39 | Cat Scan Report ---
CTA neck without and with intravenous contrast material CLINICAL HISTORY: Acute Ischemic Stroke TECHNIQUE: Following acquisition of a timing bolus 0.625 mm thick contiguous axial scans were obtained from aort ic arch to the skull base during rapid bolus intravenous contrast infusion. In addition to evaluation of axial source images multiplanar reconstructions were produced and reviewed for this report. 3 racquel ne MIP reconstructions were produced and reviewed. Contrast dose report: Omnipaque 350: 100 ml, administered intravenously All CT examinations performed at this facility utilize modulated dose reduction, iterative reconstruc tion or weight-based dosing, as appropriate, to obtain a radiation dose which is as low as can reason ably be achieved. FINDINGS: Thoracic aorta:No abnormalities are identified along the course of the thoracic aorta.. Calcified ath erosclerotic plaque is observed along the course of the proximal left subclavian artery without assoc iated stenosis. The origins of the great vessels have an otherwise unremarkable appearance. Right carotid artery: Minimal calcified plaque is observed at the right carotid bulb along the course the proximal R ICA. There is no associated stenosis. Right common carotid artery has an unremarkable appearance as does the mid and distal segments of the R ICA. Left carotid artery: Calcified atherosclerotic plaque is present along the course of the left common carotid artery, at the left carotid bulb and along the proximal LICA. There is no indication of hemod ynamically significant stenosis. Posterior circulation: Right vertebral artery is dominant. Calcified plaque is present along the V2 s egment of the left vertebral artery at the level of the T6 transversalis foramina. This is associated with a less than 50% stenosis. The degree of stenosis, if any, is determined utilizing NASCET like criteria. In this case there is no indication of hemodynamically significant stenosis at the carotid bifurcations or elsewhere. Evaluation of the nonvascular soft tissue structures reveal no abnormality. There is no indication of cervical lymphadenopathy. No abnormalities are seen along the course of the airway. Visualized porti ons of the parotid glands and the submandibular salivary glands have a normal appearance. Thyroid gla nd has a normal appearance. Evaluation of the lung apices reveals no evidence of lung nodule or infil trate. Loss of the cervical lordosis is noted. Widespread cervical spondylosis is evident without evidence o f central canal stenosis. Multifocal neuroforaminal narrowing is observed. IMPRESSION: 1. No indication of hemodynamically significant stenosis at the carotid bifurcations or elsewhere. Signer Name: Armaan Mejia MD Signed: 09/09/2021 11:25 AM Workstation Name: [id number]
--- NOTE | 2021-09-09 11:47 | Cat Scan Report ---
CTA head with intravenous contrast CLINICAL HISTORY: Acute Ischemic Stroke TECHNIQUE: 0.625 mm thick contiguous axial scans were obtained from the skull base to the skull vertex during r apid bolus administration of intravenous contrast material. Multiplanar reconstructions were produced in the coronal and sagittal planes. In addition 3 plane MIP instructions were produced and reviewed for this report. The axial source images and reconstructed images were reviewed for this report. CONTRAST DOSE REPORT: Omnipaque 350: 100 ml administered intravenously. All CT scans at this location are performed using CT dose reduction for ALARA by means of automated e xposure control. FINDINGS: Internal carotid arteries: Extensively calcified atherosclerotic plaque is seen along the course of t he horizontal petrous, cavernous, ophthalmic and communicating segments of both internal carotid [place]. There is a 50% stenosis along the course of the left internal carotid artery in its cavernous s egment. Middle cerebral arteries:Normal and symmetrical M1 segments of the middle cerebral arteries are demon strated. No abnormalities are seen on evaluation of the insular or opercular branches. Anterior cerebral arteries:Bilaterally symmetrical A1 segments are demonstrated. No abnormalities are seen along the course of the A2 segments or their visualized pericallosal branches. Anterior communi cating artery is not identified. Vertebral arteries: Calcified atherosclerotic plaque is present along the course of the V4 segments o f both vertebral arteries. Maximum degree of stenosis is in the region of the mid V4 segment of the l eft vertebral artery were a stenosis on the order of 70% is identified. Basilar artery: Calcified plaque is seen along the course of the basilar artery. In addition soft racquel que is present in the mid basilar artery producing about 50% stenosis. Posterior cerebral arteries:Bilaterally symmetrical posterior cerebral arteries are identified. Smal l bilateral posterior communicating arteries are identified. [place]:Not intact. see above. Dural sinuses: Dural venous sinuses are well demonstrated on this exam. There is no evidence of dural sinus thrombosis. IMPRESSION: 1. Evidence of intercranial atherosclerotic disease along the anterior and posterior circulation as d escribed above. 2. No indication of large vessel occlusion. Signer Name: Armaan Mejia MD Signed: 09/09/2021 11:41 AM Workstation Name: [id number]
[2021-09-09 12:32] VITALS: BP 136/86
--- NOTE | 2021-09-09 13:42 | Discharge Summary ---
Providers - Providers Date of Admission: 09/07/21 04:43 Date of discharge: 09/09/21 Attending physician: ANAIS HARRINGTON MD 09/07/21 04:43 Consult to Physician [CONS] Routine Comment: Consulting Provider: SHRUTI SOLITARIO Physician Instructions: Reason For Exam: TIA versus CVA Occupational Therapy Evaluate and Treat [CONS] Routine Comment: Reason For Exam: Neuro deficits Physical Therapy Evaluation and Treat [CONS] Routine Comment: Reason For Exam: Neuro deficits Hospitalization Reason for admission: Acute right cerebral infarct/CVA Condition: Stable Pertinent studies: Reviewed. Procedures: None. Hospital course: Patient is 71-year-old female past medical history of hypertension, COPD, asthma, tobacco dependence who presented with shortness of breath in addition to numbness and stiffness. Patient denied any sick contacts, headache, dizziness, nausea, vomiting, chest pain, or diaphoresis. The patient described her weakness as lasting approximately 20 minutes. On presentation to the ED, the patient was found to be wheezing and as a result received nebulizing treatments with IV steroids. The patient was found to be hemodynamically stable. Due to her symptoms, the patient underwent CVA work-up. CT head noncontrast, CT angio chest, CT angio head and neck, and TTE were found to be unremarkable. Patient underwent MRI brain revealing "small area of acute infarctions involving the right cerebellum and right occipital lobe" consistent with acute ischemic CVA. Patient was evaluated by physical therapy who recommended "patient does not need PT in the setting". It was recommended that the patient undergo outpatient ENT or neuro vestibular evaluation. Patient was evaluated by neurology during her admission. Patient was counseled about lifestyle changes, dietary changes, tobacco cessation, and following up with neurology in outpatient setting. Patient expressed understanding. Patient is medically cleared for discharge. Disposition: 01 HOME / SELF CARE / HOMELESS Final Discharge Diagnosis (Prints w/discharge instructions): Acute right cerebellar infarct/CVA, hypertension, COPD, tobacco dependence Time spent for discharge: 45 min Core Measure Documentation - Palliative Care Palliative Care/ Comfort Measures: Not Applicable - Core Measures Any of the following diagnoses?: stroke - Stroke Discharge Requirements Statin for LDL = or >70 mg/dl on DC: Not Applicable Reason for no statin on DC: Drug Allergy Anticoag for atrial fib/atrial flutter: Not Applicable Reason for no anticoag for AF/F on DC: Not Indicated Antithrombotic for ischemic stroke: No Reason for no antithrombotic on DC: Not Indicated Exam - Constitutional Vitals: Temp Pulse Resp BP Pulse Ox 98.2 F 78 16 136/86 97 09/09/21 11:02 09/09/21 11:02 09/09/21 11:02 09/09/21 11:02 09/09/21 11:02 General appearance: Present: no acute distress, well-nourished - EENT Eyes: Present: PERRL, EOM intact ENT: hearing intact, clear oral mucosa, dentition normal - Neck Neck: Present: supple, normal ROM - Respiratory Respiratory effort: normal Respiratory: bilateral: CTA - Cardiovascular Rhythm: regular Heart Sounds: Present: S1 & S2 - Extremities Extremities: no ischemia, pulses intact, pulses symmetrical, No edema, normal temperature, normal color, Full ROM Peripheral Pulses: within normal limits - Abdominal General gastrointestinal: Present: soft, non-tender, non-distended, normal bowel sounds Female genitourinary: Present: deferred - Rectal Rectal Exam: deferred - Integumentary Integumentary: Present: clear, warm, dry - Musculoskeletal Musculoskeletal: strength equal bilaterally - Psychiatric Psychiatric: appropriate mood/affect, intact judgment & insight, memory intact, cooperative - Neurologic Neurologic: CNII-XII intact, moves all extremities - Allied Health Allied health notes reviewed: nursing Plan Activity: no restrictions Diet: low salt Special Instructions: smoking cessation Additional Instructions: Patient is 71-year-old female past medical history of hypertension, COPD, asthma, tobacco dependence who presented with shortness of breath in addition to numbness and stiffness. Patient denied any sick contacts, headache, dizziness, nausea, vomiting, chest pain, or diaphoresis. The patient described her weakness as lasting approximately 20 minutes. On presentation to the ED, the patient was found to be wheezing and as a result received nebulizing treatments with IV steroids. The patient was found to be hemodynamically stable. Due to her symptoms, the patient underwent CVA work-up. CT head noncontrast, CT angio chest, CT angio head and neck, and TTE were found to be unremarkable. Patient underwent MRI brain revealing "small area of acute infarctions involving the right cerebellum and right occipital lobe" consistent with acute ischemic CVA. Patient was evaluated by physical therapy who recommended "patient does not need PT in the setting". It was recommended that the patient undergo outpatient ENT or neuro vestibular evaluation. Patient was evaluated by neurology during her admission. Patient was counseled about lifestyle changes, dietary changes, tobacco cessation, and following up with neurology in outpatient setting. Patient expressed understanding. Patient is medically cleared for discharge. Care Plan Goals: Patient is medically cleared for discharge. Assessment: Patient is 71-year-old female past medical history of hypertension, COPD, asthma, tobacco dependence who presented with shortness of breath in addition to numbness and stiffness. Patient denied any sick contacts, headache, dizziness, nausea, vomiting, chest pain, or diaphoresis. The patient described her weakness as lasting approximately 20 minutes. On presentation to the ED, the patient was found to be wheezing and as a result received nebulizing treatments with IV steroids. The patient was found to be hemodynamically stable. Due to her symptoms, the patient underwent CVA work-up. CT head noncontrast, CT angio chest, CT angio head and neck, and TTE were found to be unremarkable. Patient underwent MRI brain revealing "small area of acute infarctions involving the right cerebellum and right occipital lobe" consistent with acute ischemic CVA. Patient was evaluated by physical therapy who recommended "patient does not need PT in the setting". It was recommended that the patient undergo outpatient ENT or neuro vestibular evaluation. Patient was evaluated by neurology during her admission. Patient was counseled about lifestyle changes, dietary changes, tobacco cessation, and following up with neurology in outpatient setting. Patient expressed understanding. Patient is medically cleared for discharge. Follow up with: HOLLY GUTIERREZ [Other] - 3-5 Days KAREN ALTAMIRANO MD [Staff Physician] - 7 Days Prescriptions: Aspirin 325 mg PO QDAY #20 tablet Nicotine [Habitrol] 14 mg TD QDAY #30 patch NIFEdipine [Nifedipine ER] 60 mg PO DAILY #30 tab
== END 2021-09-09 15:35 | disposition home or self-care (01) | DRG 66 ==
LOC: ED 23:25 → 3A 09-07 04:43 → 4A 09-07 19:53 → 3A 09-07 20:04
PROVIDERS: ADMIT Internal Medicine Geriatric Medicine; ATTEND Student in an Organized Health Care Education/Training Program
DX: I63.89 Other cerebral infarction (principal); F17.210 Nicotine dependence, cigarettes, uncomplicated; J44.9 Chronic obstructive pulmonary disease, unspecified; R29.700 NIHSS score 0; I10 Essential (primary) hypertension; I27.20 Pulmonary hypertension, unspecified; Z88.8 Allergy status to other drugs, medicaments and biological substances; Z79.899 Other long term (current) drug therapy; Z71.6 Tobacco abuse counseling; Z79.82 Long term (current) use of aspirin
CPT/HCPCS: 36415; 70450; 70496; 70498; 70551; 71045; 71275; 80048; 80061; 80076; 83036; 83880; 84484; 85025; 85379; 85610; 93005; 93306; 93880; 94640; 94644; 99406; G0378; C8929; J1644; J2930; Q9967